=== PATIENT | female | born 1990 | race Two or more races ===

== ENCOUNTER 2022-08-21 18:23 | Emergency (ER) | payer OTHER ==
[~2022-08-21] VITALS: Ht 154.9 cm; Wt 77.7 kg
[2022-08-21 19:00] VITALS: BP 139/89
== END 2022-08-22 04:51 | disposition home or self-care (01) ==
LOC: ER 18:23
DX: S40.022A Contusion of left upper arm, initial encounter (principal); S80.12XA Contusion of left lower leg, initial encounter; M54.2 Cervicalgia; R10.9 Unspecified abdominal pain; Y04.2XXA Assault by strike against or bumped into by another person, initial encounter; Y93.89 Activity, other specified; Y92.89 Other specified places as the place of occurrence of the external cause; Y99.8 Other external cause status